=== PATIENT | female | born 1985 | race Caucasian/White ===

== ENCOUNTER 2017-10-08 14:03 | Emergency (ER) | payer OTHER ==
[~2017-10-08] VITALS: Ht 162.6 cm; Wt 99.8 kg
[2017-10-08] MEDS ORDERED: NORCO 5-325 TA1 EACH PO (14:14)
[2017-10-08] MEDS ORDERED: PENICILLIN VK500 M1 PO (14:14)
[2017-10-08 14:21] VITALS: BP 156/118
== END 2017-10-08 14:33 | disposition home or self-care (01) ==
LOC: ER 14:03
DX: K02.9 Dental caries, unspecified (principal); K04.7 Periapical abscess without sinus; R51 Headache; H61.20 Impacted cerumen, unspecified ear; Z72.0 Tobacco use; Z90.49 Acquired absence of other specified parts of digestive tract